=== PATIENT | male | born 1925 | race Caucasian/White ===

== ENCOUNTER 2016-09-29 16:27 | Inpatient (IN) | payer MEDICARE ==
[~2016-09-29] VITALS: Ht 175.3 cm; Wt 72.4 kg
[~2016-09-29 16:27] MED LIST: ALBU18HF INH; CEFD300C37 PO; DILT30TA27 PO; DOXY100C15 PO; PANT20TA2 PO; WARF2.5T73 PO
[2016-09-29 17:08] LABS: BLOOD UREA NITROGEN 23 mg/dL (7-18)
[2016-09-29 17:26] LABS: ANISOCYTOSIS 2+; MICROCYTOSIS 2+
[2016-09-29 17:27] LABS: HYPOCHROMIA 2+; OVALOCYTES 2+; POIKILOCYTOSIS 2+; POLYCHROMASIA 1+
[2016-09-29 17:35] LABS: IS PT STATUS REG ER OR PRE ER? YES
[2016-09-29 18:40] VITALS: BP 154/61
[2016-09-29 18:55] VITALS: BP 160/61
[2016-09-29] MEDS ORDERED: DILTIAZEM 30 MG TABLET PO SCH (19:30)
[2016-09-29] MEDS ORDERED: WARFARIN 2.5 MG TABLET PO-COUM SCH (19:30)
[2016-09-29] MEDS ORDERED: ALBUTEROL SULFATE 2.5 MG/3 ML NPPB PRN (19:30)
[2016-09-29] MEDS ORDERED: PANTOPRAZOLE 20MG TABLET PO SCH (19:30)
[2016-09-29 19:55] VITALS: BP 162/72
[2016-09-29] MEDS ORDERED: DIPHENHYDRAMINE 50 MG CAPSULE PO PRN (20:00)
[2016-09-29 20:55] VITALS: BP 181/72
[2016-09-29 22:16] VITALS: BP 177/74
[2016-09-29] MEDS ORDERED: DOCUSATE 100 MG CAPSULE PO PRN (22:30)
[2016-09-29] MEDS ORDERED: ONDANSETRON ODT 4 MG PO PRN (22:30)
[2016-09-29] MEDS ORDERED: ENALAPRILAT 1.25 MG/ML, 2ML IVPush PRN (22:30)
[2016-09-30 02:28] VITALS: BP 158/68
[2016-09-30 05:06] LABS: BLOOD UREA NITROGEN 20 mg/dL (7-18)
[2016-09-30 05:55] LABS: DIFF TOTAL CELLS COUNTED 100 CELL DIFF
[2016-09-30 05:56] LABS: VERIFY COUNTS? YES
[2016-09-30 06:01] LABS: ANISOCYTOSIS 2+; MICROCYTOSIS 2+
[2016-09-30 06:02] LABS: HYPOCHROMIA 2+; OVALOCYTES 1+; POIKILOCYTOSIS 1+; POLYCHROMASIA 1+
[2016-09-30 07:48] VITALS: BP 169/71
[2016-09-30] MEDS: DILTIAZEM 30 MG TABLET PO SCH (08:05)
[2016-09-30 13:25] VITALS: BP 133/45
[2016-09-30 18:31] VITALS: BP 152/59
[2016-10-01] VITALS (11 sets, daily range): BP systolic 68–163; BP diastolic 55–74
[2016-10-01 05:59] LABS: BLOOD UREA NITROGEN 18 mg/dL (7-18)
[2016-10-01 06:20] LABS: DIFF TOTAL CELLS COUNTED 100 CELL DIFF
[2016-10-01 06:55] LABS: VERIFY COUNTS? YES
[2016-10-01 06:56] LABS: ANISOCYTOSIS 2+
[2016-10-01 07:00] LABS: HYPOCHROMIA 1+; MICROCYTOSIS 1+; OVALOCYTES 1+; POIKILOCYTOSIS 1+
[2016-10-01] MEDS: DILTIAZEM 30 MG TABLET PO SCH (09:00)
[2016-10-01 16:35] LABS: DIFF TOTAL CELLS COUNTED 100 CELL DIFF
[2016-10-01 16:37] LABS: ANISOCYTOSIS 2+; HYPOCHROMIA 1+; MICROCYTOSIS 1+; OVALOCYTES 1+; POIKILOCYTOSIS 1+; VERIFY COUNTS? YES
[2016-10-01 16:38] LABS: POLYCHROMASIA 1+
[2016-10-01 16:41] LABS: LARGE PLATELETS 1+
[2016-10-02 03:00] VITALS: BP 170/71
[2016-10-02 07:36] VITALS: BP 174/77
[2016-10-02] MEDS: DILTIAZEM 30 MG TABLET PO SCH (08:43)
[2016-10-02 10:28] VITALS: BP 176/73
[2016-10-02] MEDS ORDERED: DILT30TA27 PO (11:53)
[2016-10-02] MEDS ORDERED: FERR325T10 PO (11:55)
[2016-10-02 12:26] VITALS: BP 147/61
[2016-10-02 13:43] VITALS: BP 129/55
[2016-10-03] MEDS ORDERED: DILTIAZEM 30 MG TABLET PO SCH (09:00)
== END 2016-10-02 14:58 | disposition home or self-care (01) | DRG 378 ==
LOC: ED 17:40 → EDIP 17:58 → 3NE 20:15
PROVIDERS: ADMIT Internal Medicine; ATTEND Family Medicine
PROC: 30233N1 Transfusion of Nonautologous Red Blood Cells into Peripheral Vein, Percutaneous Approach (ICD-10-PCS; principal; 2016-09-29)
PROC: 30233N1 Transfusion of Nonautologous Red Blood Cells into Peripheral Vein, Percutaneous Approach (ICD-10-PCS; 2016-10-01)
DX: K92.2 Gastrointestinal hemorrhage, unspecified (principal); D68.59 Other primary thrombophilia; J84.9 Interstitial pulmonary disease, unspecified; I48.91 Unspecified atrial fibrillation; I10 Essential (primary) hypertension; Z79.01 Long term (current) use of anticoagulants; Z87.11 Personal history of peptic ulcer disease; Z87.891 Personal history of nicotine dependence; Z88.8 Allergy status to other drugs, medicaments and biological substances; F43.21 Adjustment disorder with depressed mood; D50.0 Iron deficiency anemia secondary to blood loss (chronic)
CPT/HCPCS: 36415; 36430; 71010; 80048; 82040; 84484; 85014; 85018; 85025; 85610; 85730; 86850; 86900; 86923; 93005; P9016